=== PATIENT | male | born 1950 | race Caucasian/White ===

== ENCOUNTER 2017-11-12 06:36 | Inpatient (IN) | payer OTHER ==
[2017-10-01 14:16] VITALS: BMI 32.0
--- NOTE | 2017-10-01 15:03 | PAT Medication Instructions ---
Service Date Oct 01, 2017. Current Home Medication List Ascorbic Acid (Vitamin C), 1,000 MG PO QAM Cholecalciferol (Vitamin D3), 1 TAB PO QAM Dicyclomine Hcl (Bentyl), 20 MG PO TID Fish Oil ([place]-3), 2 CAP PO BID Metformin Hcl (Glucophage Ext Rel), 1,000 MG PO BID Multivitamin (Multivitamin), 1 TAB PO QAM Nizatidine (Nizatidine), 1 TAB PO BID Sitagliptin (Januvia), 50 MG PO QAM Vitamin B Cmplx/Vitc/Folic Ac (Nephrocaps), 1 CAP PO QAM Vitamin E (Alph-E), 400 UNITS PO QAM [Folic Acid], 400 MCG PO QAM Medication Instructions For Your Scheduled Surgery - Hold the following medications 2 weeks prior to surgery: Vitamin E (Alph-E), 400 UNITS PO QAM Fish Oil ([place]-3), 2 CAP PO BID - Hold the following medications 48 hours prior to surgery: Metformin Hcl (Glucophage Ext Rel), 1,000 MG PO BID - Hold the following medications the morning of surgery: Sitagliptin (Januvia), 50 MG PO QAM Ascorbic Acid (Vitamin C), 1,000 MG PO QAM Cholecalciferol (Vitamin D3), 1 TAB PO QAM Multivitamin (Multivitamin), 1 TAB PO QAM Vitamin B Cmplx/Vitc/Folic Ac (Nephrocaps), 1 CAP PO QAM [Folic Acid], 400 MCG PO QAM Dicyclomine Hcl (Bentyl), 20 MG PO TID - Take the following medications the morning of surgery with a sip of water OTHERWISE NOTHING TO EAT OR DRINK AFTER MIDNIGHT: Nizatidine (Axid), 1 TAB PO BID - Take the following medications as scheduled the night before surgery: Nizatidine (Axid), 1 TAB PO BID Dicyclomine Hcl (Bentyl), 20 MG PO TID If you have any questions please call us at [phone] or [phone] or [phone]
--- NOTE | 2017-10-01 15:41 | DIAGNOSTIC IMAGING REPORT ---
CHEST 2 VIEWS ROUTINE CLINICAL HISTORY: Preoperative chest COMPARISON STUDY: No previous studies for comparison. FINDINGS: The cardiac and mediastinal contours are normal. There is no evidence of focal pulmonary consolidation. There is no evidence of failure. No pleural effusions are visualized.[ There is minimal left basilar atelectasis/scarring IMPRESSION: No active disease in the chest. Electronically signed by: Zane Lo M.D. 10/01/2017 3:39 PM Dictated Date/Time: 10/01/2017 3:39 PM
[2017-10-01 16:01] LABS: BASO % 0.4 %; BASO ABS # 0.02 K/uL (0-0.2); EOS % 1.1 %; EOS ABS # 0.06 K/uL (0-0.5); IG# 0.01 K/uL (0.00-0.02); LYMPH % 22.1 %; LYMPH ABS # 1.22 K/uL (1.2-3.4); MEAN CELL VOLUME 91.1 fL (80-100); MEAN CORPUSCULAR HEMOGLOBIN 31.9 pg (25-34); MEAN PLATELET VOLUME 10.2 fL (7.4-10.4); MONO % 10.5 %; MONO ABS # 0.58 K/uL (0.11-0.59); NEUT % 65.7 %; NEUT ABS # 3.62 K/uL (1.4-6.5); PLATELET COUNT 176 K/uL (130-400); RED CELL DISTRIBUTION WIDTH CV 12.5 % (11.5-14.5); RED CELL DISTRIBUTION WIDTH SD 41.9 fL (36.4-46.3); WHITE BLOOD COUNT 5.51 K/uL (4.8-10.8)
[2017-10-01 16:11] LABS: ALBUMIN 3.7 gm/dl (3.4-5.0); CALCIUM 9.3 mg/dl (8.5-10.1); CREATININE 0.84 mg/dl (0.60-1.40); POTASSIUM 4.3 mmol/L (3.5-5.1)
[2017-10-01 16:13] LABS: PTT PATIENT 26.1 SECONDS (21.0-31.0)
[2017-10-01 16:14] LABS: TOTAL PROTEIN 7.2 gm/dl (6.4-8.2)
--- NOTE | 2017-11-10 07:53 | History and Physical ---
History & Physical Date Nov 10, 2017. Chief Complaint right hip pain History of Present Illness The patient is a 67 year old male with complaints of right hip pain for years. limping all the time. cant do adls and life has become pretty miserable. hes ready for tiffanie. Additional History Hepatic Disease: No Endocrine Disorder: Yes Kidney Disease: No Hypertension: No Heart Disease: No Bleeding Tendencies: No Infectious Diseases: No Allergies Coded Allergies: Ketorolac Tromethamine (Verified Adverse Reaction, Unknown, "SEVERE HEADACHES", 10/01/17) Home Medications Scheduled Ascorbic Acid (Vitamin C), 1,000 MG PO QAM Cholecalciferol (Vitamin D3), 1 TAB PO QAM Dicyclomine Hcl (Bentyl), 20 MG PO TID Fish Oil ([place]-3), 2 CAP PO BID Metformin Hcl (Glucophage Ext Rel), 1,000 MG PO BID Multivitamin (Multivitamin), 1 TAB PO QAM Nizatidine (Nizatidine), 1 TAB PO BID Sitagliptin (Januvia), 50 MG PO QAM Vitamin B Cmplx/Vitc/Folic Ac (Nephrocaps), 1 CAP PO QAM Vitamin E (Alph-E), 400 UNITS PO QAM [Folic Acid], 400 MCG PO QAM Physical Examination Skin: warm/dry, no rash Eyes: normal inspection, EOMI, sclerae normal ENT: normal ENT inspection, pharynx normal Head: normocephalic, atraumatic Neck: supple, no adenopathy, trachea midline Respiratory/Chest: lungs clear, normal breath sounds, no respiratory distress Cardiovascular: regular rate, rhythm, no edema, no murmur Abdomen / GI: normal bowel sounds, non tender Back: normal inspection Extremities: normal inspection, normal range of motion, + pertinent finding Neurologic/Psych: no motor/sensory deficits, alert, normal reflexes, oriented x 3 Addiitonal Comments: pain with rom right hip. Diagnosis djd right hip Plan of Treatment plan is to admit and undergo right tiffanie. pt plan is to be dc home on day 1.
[2017-11-12] VITALS (8 sets, daily range): BP systolic 127–182; BP diastolic 72–101; PULSE 82–91; TEMP 36.5–37.6; O2SAT 94–97; Ht 180.3 cm; Wt 105.3 kg
[~2017-11-12] VITALS: Ht 180.3 cm; Wt 105.3 kg
[~2017-11-12 06:36] MED LIST: ACETAMINOPHEN 500 MG TAB PO SCH; ASCO10003 PO; AXD/150 PO; B-CO1CAP17 PO; BUPIVACAINE 0.5 % 5 MG/1 ML PF 10ML VIAL ONE; CEFAZOLIN 2000MG IV PUSH 10 ML IV SCH; CHOL1000 PO; CeleBREX 200 MG CAP PO SCH; DEXAMETHASONE 4 MG TAB PO SCH; DICY20TA35 PO; FAMOTIDINE 20 MG TAB PO SCH; FOLIC ACID PO; LACTATED RINGER'S 1000ML 1,000 ML IV SCH; LACTATED RINGER'S 1000ML 500 ML IV SCH; LACTATED RINGER'S 1000ML IV SCH; METF1TAB53 PO; METOCLOPRAMIDE HCL 10 MG TAB PO SCH; MULT-506 PO; OMEG10007 PO; ROPIVACAINE 5MG/ML 30 ML 150 MG, BUPIVACAINE 0.5% MPF INJ 30 ML, EpINEphrine HCL INJ 0.... INFIL SCH; SITA50TA3 PO; VITA400C28 PO
--- NOTE | 2017-11-12 06:52 | History & Physical Bridge Note ---
H&P Re-Evaluation Bridge Note: I have examined the patient, reviewed the History & Physical and in the interval since the performance of the History & Physical I have noted the following changes of clinical significance: No changes noted
[2017-11-12] MEDS ORDERED: ORTHO JOINT ANESTHETIC ONE (06:58)
[2017-11-12] MEDS ORDERED: BACITRACIN 50000 UNIT VIAL ONE (06:58)
[2017-11-12] MEDS ORDERED: MIDAZOLAM HCL 1 MG/ML 2ML VIAL ONE ×2 (07:00→08:46)
[2017-11-12] MEDS ORDERED: ATROPINE SULFATE 0.1 MG/ML 5ML SYR IV PRN (07:30)
[2017-11-12] MEDS ORDERED: ONDANSETRON INJ 2 MG/ML 2 ML VIAL IV PRN ×2 (07:30→09:15)
[2017-11-12] MEDS ORDERED: FENTANYL CITRATE INJ 50 MCG/1 ML 2 ML VIAL IV PRN (07:30)
[2017-11-12] MEDS ORDERED: EpHEDrine SULFATE INJ 50 MG/ML AMP IV PRN (07:30)
[2017-11-12] MEDS: TRANEXAMIC ACID INJ 1,000 MG in SYRINGE 0 ML IV SCH ×2 (07:41→11:36)
[2017-11-12] MEDS ORDERED: PHENYLEPHRINE 100MCG/ML 5ML SYR ONE (08:11)
[2017-11-12] MEDS ORDERED: LIDOCAINE HCL 2% 2 ML VIAL (20MG/ML) ONE (08:11)
[2017-11-12] MEDS ORDERED: PROPOFOL IV EMULSION 10 MG/ML 20 ML VIAL IV ONE ×2 (08:11→09:03)
[2017-11-12] MEDS ORDERED: POVIDONE-IODINE OP SOLN 30 ML BTL ONE (08:16)
[2017-11-12] MEDS ORDERED: EpHEDrine SULFATE 50MG/5ML SYR ONE (08:26)
[2017-11-12] MEDS ORDERED: PHENYLEPHRINE HCL INJ 10 MG/ML VIAL ONE (08:39)
--- NOTE | 2017-11-12 09:06 | [facility] Post Operative Brief Note ---
Immediate Operative Summary Operative Date Nov 12, 2017. Pre-Operative Diagnosis djd right hip Post-Operative Diagnosis same Procedure(s) Performed right total hip arthroplasty Surgeon Dr Dorantes Social Welfare Clerk Surgeon(s) Carito CONNOR Estimated Blood Loss 30cc Findings Consistent with Post-Op Diagnosis Specimens none Drains hemovac Anesthesia Type Spinal Complication(s) none Disposition Accompanied Pt To Recover: no Disposition: Recovery Room / PACU
[2017-11-12] MEDS ORDERED: ZOLPIDEM TARTRATE 5 MG TAB PO PRN (09:15)
[2017-11-12] MEDS ORDERED: SOD PHOSPHATE/SOD BIPHOSPHATE ENEMA 132 ML BTL PR PRN (09:15)
[2017-11-12] MEDS ORDERED: ALUMINUM/MAGNESIUM/SIMETH (MAALOX MAX) 30 ML UDC PO PRN (09:15)
[2017-11-12] MEDS ORDERED: MAGNESIUM HYDROXIDE SUSP 30 ML UDC PO PRN (09:15)
[2017-11-12] MEDS ORDERED: BISACODYL 10 MG SUPP PR PRN (09:15)
--- NOTE | 2017-11-12 09:19 | [facility] Operative Report ---
Operative Report Operative Date Nov 12, 2017. Pre-Operative Diagnosis Degenerative joint disease right hip Post-Operative Diagnosis same as preoperative Procedure(s) Performed Right Total Hip Arthroplasty, uncemented Surgeon Dr. Robins Bottling Line Operator Surgeon(s) Rene Arzate PA-C Estimated Blood Loss 30ml Findings as above Specimens A. Right femoral head Drains hemovac Complication(s) None Disposition Recovery Room / PACU Description of Procedure IMPLANTS USED: Rehana size 58 mm PSL HERNANDEZ-coated acetabular cup, one acetabular screw, a 36 mm X3 elevated liner, a #5 Accolade 2 stem with a 127 neck and a 36 mm +0 ceramic head INDICATIONS: Mr. Klein is a pleasant male who has unfortunately failed all forms of conservative measures. Therefore, they have has decided to undergo elective surgical intervention. All risks and benefits of the surgery were discussed with the patient and the family in entirety. PROCEDURE: The patient was brought to the operating room and properly identified by myself, anesthesia, and staff. Patient was given a spinal anesthetic and placed on the operating table with the right hip up. The hip was then prepped and draped in the standard orthopedic fashion. We made a standard posterolateral approach over the greater trochanteric area. We then dissected down to subcutaneous tissue until the fascia was identified. We incised the fascia in line with the skin incision. We then split the gluteus colby muscles with finger dissection. We then put the Charnley retractor in place. We placed the retractor underneath the gluteus medius to expose the piriformis. The piriformis was then tagged with a tag suture and released from the insertion from the greater trochanteric area with the use of electrocautery. We then performed a T capsulotomy and the femoral head and neck were atraumatically dislocated. We then performed femoral neck osteotomy at the pre-template site. We removed the femoral head and neck without difficulty. We then placed the retractor around the acetabulum. We then began to ream the acetabulum to the appropriate size. We then impacted the cup into place and had a very good fixation within the pelvis. We then put the liner in place as well. Then using multiple size approaches from the Accolade 2 system a size #5 fit very nicely in the proximal femur. I then put trial components in place. WE had very good range of motion, excellent stability, and excellent leg length equality. We removed the trial components and irrigated the wound. We then impacted the components in place and irrigated the wound once more. We then closed the capsule and fascia with a 0 Vicryl suture, the deep dermis with 2-0 Vicryl suture, and finally the skin with a running 3-0 Vicryl subcuticular stitch. A sterile dressing was applied. The patient was taken to the recovery room in stable condition. Due to the complex nature of the procedure, the entire surgery was performed with the operational assistance of [the (VICKY)]. The ophthalmology assistant was under direct supervision, was involved in the actual performance of all aspects of the surgical procedure including hemostasis, tissue retraction and incision, instrument management, patient positioning, and wound closure. I attest to the content of the Intraoperative Record and any orders documented therein. Any exceptions are noted below.
--- NOTE | 2017-11-12 10:00 | Anesthesiology Progress Note ---
Anesthesia Post Op Note Date & Time Nov 12, 2017 at 10:00 Vital Signs Pain Intensity: 0 Vital Signs Past 12 Hours Date Time Temp Pulse Resp B/P (MAP) Pulse Ox O2 Delivery O2 Flow Rate FiO2 11/12/17 09:55 36.6 86 16 119/68 96 Nasal Cannula 2 11/12/17 09:45 83 16 123/70 96 Nasal Cannula 2 11/12/17 09:35 36.4 87 16 119/69 94 Nasal Cannula 2 11/12/17 07:21 37.2 91 22 182/101 96 Room Air Notes Mental Status: alert / awake / arousable, participated in evaluation Pt Amnestic to Procedure: Yes Nausea / Vomiting: adequately controlled Pain: adequately controlled Airway Patency, RR, SpO2: stable & adequate BP & HR: stable & adequate Hydration State: stable & adequate Neuraxial Anesthesia: was administered, sensory block is resolving Anesthetic Complications: no major complications apparent
[2017-11-12] MEDS: METFORMIN HCL 500 MG TABCR PO SCH ×2 (12:51→17:24)
[2017-11-12] MEDS: ACETAMINOPHEN 500 MG TAB PO SCH ×2 (13:36→22:19)
[2017-11-12] MEDS: OXYCODONE HCL IR 5 MG TAB (IMMEDIATE RELEASE) PO PRN ×2 (15:06→23:09)
[2017-11-12] MEDS ORDERED: TRANEXAMIC ACID INJ 1,000 MG in SODIUM CHLORIDE 0.9% 100ML 100 ML IV ONE (15:30)
[2017-11-12] MEDS: SODIUM CHLORIDE 0.9% 1000ML 1,000 ML IV SCH (15:56)
[2017-11-12] MEDS: CEFAZOLIN IV 2,000 MG in SYRINGE 0 ML IV SCH ×2 (16:12→23:19)
[2017-11-12] MEDS ORDERED: SENNA 8.6 MG TAB PO SCH (21:00)
[2017-11-12] MEDS: DOCUSATE SODIUM 100 MG CAP PO SCH (22:18)
[2017-11-12] MEDS: ASPIRIN 81 MG ECTAB PO SCH (22:18)
[2017-11-12] MEDS ORDERED: NURSING DECISION MEDICATION ORDER SCH (23:30)
[2017-11-13] VITALS: BP 132/78; PULSE 85; TEMP 36.8; O2SAT 95
[2017-11-13] MEDS: SODIUM CHLORIDE 0.9% 1000ML 1,000 ML IV SCH (01:38)
[2017-11-13 03:37] VITALS: BP 124/69; PULSE 86; TEMP 36.7; O2SAT 97
[2017-11-13] MEDS: ACETAMINOPHEN 500 MG TAB PO SCH (05:48)
[2017-11-13 07:28] LABS: BASO % 0.1 %; BASO ABS # 0.01 K/uL (0-0.2); EOS % 0.2 %; EOS ABS # 0.02 K/uL (0-0.5); HEMATOCRIT 34.2 % (42-52); IG# 0.02 K/uL (0.00-0.02); LYMPH % 11.7 %; MEAN CELL VOLUME 90.2 fL (80-100); MEAN CORPUSCULAR HEMOGLOBIN 31.7 pg (25-34); MEAN CORPUSCULAR HGB CONC 35.1 g/dl (32-36); MEAN PLATELET VOLUME 9.9 fL (7.4-10.4); MONO % 14.6 %; MONO ABS # 1.25 K/uL (0.11-0.59); NEUT % 73.2 %; NEUT ABS # 6.28 K/uL (1.4-6.5); PLATELET COUNT 135 K/uL (130-400); RED CELL DISTRIBUTION WIDTH CV 12.5 % (11.5-14.5); RED CELL DISTRIBUTION WIDTH SD 40.9 fL (36.4-46.3); WHITE BLOOD COUNT 8.58 K/uL (4.8-10.8)
[2017-11-13] MEDS ORDERED: DEXAMETHASONE INJ 10 MG in SYRINGE 0 ML IV ONE (07:30)
--- NOTE | 2017-11-13 07:40 | Anesthesiology Progress Note ---
Anesthesia Post Op Note Date & Time Nov 13, 2017 at 07:40 Vital Signs Pain Intensity: 3.0 Vital Signs Past 12 Hours Date Time Temp Pulse Resp B/P (MAP) Pulse Ox O2 Delivery O2 Flow Rate FiO2 11/13/17 03:37 36.7 86 18 124/69 (87) 97 Room Air 11/13/17 00:00 36.8 85 18 132/78 (96) 95 Room Air 11/12/17 23:15 Room Air Notes Mental Status: alert / awake / arousable, participated in evaluation Pt Amnestic to Procedure: Yes Nausea / Vomiting: adequately controlled Pain: adequately controlled Airway Patency, RR, SpO2: stable & adequate BP & HR: stable & adequate Hydration State: stable & adequate Neuraxial Anesthesia: was administered, sensory block resolved Anesthetic Complications: no major complications apparent
[2017-11-13 07:45] VITALS: BP 143/80; PULSE 80; TEMP 36.7; O2SAT 98
[2017-11-13] MEDS: DOCUSATE SODIUM 100 MG CAP PO SCH (08:52)
[2017-11-13] MEDS: OXYCODONE HCL IR 5 MG TAB (IMMEDIATE RELEASE) PO PRN ×2 (08:53→13:05)
[2017-11-13] MEDS: METFORMIN HCL 500 MG TABCR PO SCH (08:53)
[2017-11-13] MEDS: ASPIRIN 81 MG ECTAB PO SCH (08:54)
[2017-11-13] MEDS ORDERED: SITAGLIPTIN 25 MG TAB PO SCH (09:00)
--- NOTE | 2017-11-13 11:03 | Orthopedic Progress Note ---
Orthopedic Progress Note Date of Service Nov 13, 2017. Subjective Post OP Day: 1 Reports: feeling well, Denies: chest pain, SOB, nausea / vomiting, light headedness, calf pain Objective calves soft nontender, N/V intact, hip located, dressing C/D/I (SILVERLON), A&O x3, toes mobile, hemovac drainage (150/75CC PER SHIFT) Date Time Temp Pulse Resp B/P (MAP) Pulse Ox O2 Delivery O2 Flow Rate FiO2 11/13/17 07:45 36.7 80 16 143/80 (101) 98 Room Air 11/13/17 03:37 36.7 86 18 124/69 (87) 97 Room Air 11/13/17 00:00 36.8 85 18 132/78 (96) 95 Room Air 11/12/17 23:15 Room Air 11/12/17 15:53 37.6 83 18 145/76 (99) 94 Room Air 11/12/17 15:20 Room Air 11/12/17 13:10 36.7 85 16 143/84 (103) 94 2.0 11/12/17 12:07 36.7 86 16 160/90 (113) 97 Room Air 11/12/17 11:44 36.7 82 18 142/80 (100) 95 Nasal Cannula 2.0 11/12/17 11:08 36.7 83 16 137/77 (97) 96 Nasal Cannula 2.0 Laboratory Results 24 Hours: Test 11/13/17 07:03 White Blood Count 8.58 K/uL Red Blood Count 3.79 M/uL Hemoglobin 12.0 g/dL Hematocrit 34.2 % Mean Corpuscular Volume 90.2 fL Mean Corpuscular Hemoglobin 31.7 pg Mean Corpuscular Hemoglobin Concent 35.1 g/dl Platelet Count 135 K/uL Mean Platelet Volume 9.9 fL Neutrophils (%) (Auto) 73.2 % Lymphocytes (%) (Auto) 11.7 % Monocytes (%) (Auto) 14.6 % Eosinophils (%) (Auto) 0.2 % Basophils (%) (Auto) 0.1 % Neutrophils # (Auto) 6.28 K/uL Lymphocytes # (Auto) 1.00 K/uL Monocytes # (Auto) 1.25 K/uL Eosinophils # (Auto) 0.02 K/uL Basophils # (Auto) 0.01 K/uL Assessment & Plan Assessment: POD#1 SP RIGHT FELISA Plan: PT/OT DVT PROPH PAIN MANAGEMENT DC PLANNING- DC HOME TODAY WITH HH
[2017-11-13] MEDS ORDERED: ULT50X PO (11:07)
[2017-11-13] MEDS ORDERED: ASPEC81 PO (11:07)
[2017-11-13] MEDS ORDERED: ACET-24 PO (11:07)
[2017-11-13] MEDS ORDERED: SENN-61 PO (11:07)
--- NOTE | 2017-11-13 11:08 | Discharge Instructions ---
Discharge Instructions Date of Service Nov 13, 2017. Admission Reason for Admission: Right Hip Osteoarthritis Discharge Discharge Diagnosis / Problem: SP RIGHT FELISA Discharge Goals Goal(s): Decrease discomfort, Improve function, Increase independence Activity Recommendations Activity Limitations: per Instructions/Follow-up section . Instructions / Follow-Up Instructions / Follow-Up ACTIVITY RECOMMENDATIONS: SELF CARE INSTRUCTIONS AFTER TOTAL HIP REPLACEMENT Until the incision and soft tissues around your hip have healed, there is a possibility that the hip prosthesis could dislocate. A. Observe the following precautions to prevent dislocation: 1. Don't bend your hip greater than 90 degrees. 2. Avoid crossing your legs or ankles while standing or lying. 3. Sit with your feet placed 6 inches apart. 4. When sitting, keep your knees below your hips. Sit on a firm surface, avoid deep, soft chairs and couches. Use an elevated toilet seat in the bathroom. 5. Don't bend over at the waist. Use a long handled shoehorn and a sock aid to help you put on your shoes and socks. A psychology lecturer can help you merchandise pickup/receiving associate objects that are too high or too low to reach. 6. Keep car riding to a minimum for at least one month after surgery. B. Your balance may be shaky for a while. Use crutches or a walker until directed by your doctor. C. Use hand rails when walking on stairs. D. Wear low heeled shoes with non-slip soles. E. Be sure that your floors are free of things that could trip you - throw rugs , electrical cords, small objects. Avoid wet and waxed floors, especially with crutches and canes. F. Try to walk several times a day with rest periods between. G. Continue with all the exercises taught to you in the hospital. Again, make walking a part of your daily routine. SPECIAL CARE INSTRUCTIONS: VERY IMPORTANT TO READ AND REVIEW A. You may still be at risk for phlebitis and blood clots. 2. Take Aspirin 81mg twice daily for 4 weeks or as directed by your doctor. This is your blood thinner. 3. High risk patients may be prescribed a stronger blood thinner if necessary. 4. If you are on Coumadin normally, your family doctor/powder blender should monitor your blood work. Expect a phone call the day of or the day after bloodwork is drawn to adjust your dosage. B. You must take antibiotics before having dental work, bladder, bowel and other surgery. Your doctor will provide you with a permanent card to carry describing precautions. C. Call [facility] if you have a fever, redness or swelling around the incision, cloudy drainage from incision, or sudden increase in pain in your hip, not relieved by your regular pain medication. D. Please call the office at if you have any concerns or questions about your operation or recovery. * YOU MAY SHOWER, NO TUB BATHS UNTIL CLEARED BY YOUR DOCTOR. * YOU SHOULD USE A WALKER OR CRUTCHES FOR 2-4 WEEKS. THIS WILL HELP PREVENT STRAIN ON YOUR HIP MUSCLE AND ALLOW IT TO HEAL PROPERLY. YOU MAY WEAN TO A CANE TOLERATED. * MOST PATIENTS WILL HAVE HOME NURSING FOR THERAPY. IF YOU DECIDE TO DO OUTPATIENT PHYSICAL THERAPY, PLEASE SCHEDULE THIS 3 TIMES PER WEEK. * YOU MAY HAVE A LARGE, BAND-JORDI LIKE DRESSING (SILVERON). THIS WILL REMAIN ON YOUR INCISION FOR 7 DAYS, THEN CAN BE REMOVED. IF INCISION IS LEAKING THROUGH DRESSING, PLEASE CALL THE OFFICE . FOLLOW UP VISIT: If appointment is not already scheduled: Please call [facility] to make a follow-up appointment for 2 weeks after your surgery at . Current Hospital Diet Patient's current hospital diet: Diabetes Type 2 Diet Discharge Diet Recommended Diet: Regular Diet Procedures Procedures Performed: Right Total Hip Arthroplasty, uncemented Pending Studies Studies pending at discharge: no Laboratory Results Hemoglobin A1c Test 10/01/17 15:11 Range/Units Estimated Average Glucose 154 mg/dl Hemoglobin A1c 7.0 H 4.5-5.6 % Medical Emergencies . Who to Call and When: Medical Emergencies: If at any time you feel your situation is an emergency, please call 911 immediately. . Non-Emergent Contact Non-Emergency issues call your: Surgeon . "Provider Documentation" section prepared by Ludmila Brewster. . VTE Core Measure Inpt VTE Proph given/why not?: Other Anticoagulation, T.E.D. Stockings, SCD's [place] Drug Monitoring Program Search Results: patient reviewed within database, no issues identified
[2017-11-13 11:29] VITALS: BP 161/92; PULSE 90; O2SAT 94
[2017-11-13 12:42] VITALS: BP 143/80; PULSE 80; TEMP 36.7; O2SAT 98
== END 2017-11-13 14:04 | disposition home health service (06) | DRG 470 ==
LOC: C.ACU 06:36 → C.3E 06:40 → ENRESERV 09:42
PROVIDERS: ADMIT Orthopaedic Surgery; ATTEND Orthopaedic Surgery
PROC: 0SR90JA Replacement of Right Hip Joint with Synthetic Substitute, Uncemented, Open Approach (ICD-10-PCS; principal; 2017-11-12 08:15)
DX: M16.11 Unilateral primary osteoarthritis, right hip (principal)